=== PATIENT | female | born 1960 | race Caucasian/White ===

== ENCOUNTER 2021-03-26 14:24 | Emergency (ER) | payer OTHER ==
[2021-03-26 14:53] VITALS: BP 150/70; PULSE 79; TEMP 97.8; BMI 25.6
== END 2021-03-26 18:55 | disposition home or self-care (01) ==
LOC: JERFT 14:24
DX: S82.891A Other fracture of right lower leg, initial encounter for closed fracture (principal); W00.1XXA Fall from stairs and steps due to ice and snow, initial encounter
CPT/HCPCS: 73590-TC-RT-FY; 73610-TC-RT-FY; 73630-TC-RT-FY; 99284-25